=== PATIENT | male | born 1990 | race Caucasian/White ===

== ENCOUNTER 2019-09-10 04:28 | Emergency (ER) | payer SELFPAY ==
[~2019-09-10] VITALS: Ht 180.3 cm; Wt 110.0 kg
--- NOTE | 2019-09-10 04:38 | NUR ---
Pt BIB [facility] for ETOH. Pt was found at [facility] and security called [facility] for pt's increased ETOH. Pt alert and resting on gurney. Pt reported he had to pee, 2 urinals provided. Pt missed urinal and peed oneself. Pt given wipes and towels to clean himself off. Pt called this RN an "ignorant slut". 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 Per [facility] pt has no allergies, takes no meds and has hx of migraines. [facility] VS: 109/83, HR 103, 93% RA.
--- NOTE | 2019-09-10 06:30 | NUR ---
PT SLEEPING. GENITALS RE-COVERED. NAD.
[2019-09-10 07:15] VITALS: BP 108/66
--- NOTE | 2019-09-10 07:15 | NUR ---
ASSUMED CARE. PT RESTING IN BED CALL LIGHT IN REACH. ETOH ODOR
--- NOTE | 2019-09-10 08:06 | NUR ---
DISCHARGE INSTRUCTIONS REVIEWED.
== END 2019-09-10 08:27 | disposition home or self-care (01) ==
LOC: ED 08:20
DX: F10.129 Alcohol abuse with intoxication, unspecified (principal); G43.909 Migraine, unspecified, not intractable, without status migrainosus; Y90.9 Presence of alcohol in blood, level not specified
CPT/HCPCS: 99283

== ENCOUNTER 2021-01-09 17:41 | Emergency (ER) | payer OTHER ==
[~2021-01-09] VITALS: Ht 175.3 cm; Wt 88.5 kg
[2021-01-09] MEDS ORDERED: DIPH,PERTUSS(ACELL),TET VAC/PF 0.5 ML IM-VACC ONE ×2 (18:30→21:14)
[2021-01-09] MEDS ORDERED: IBUPROFEN 800 MG TABLET ONE (21:14)
[2021-01-09 21:23] VITALS: BP 120/80
--- NOTE | 2021-01-09 21:26 | NUR ---
Patient given discharge instructions and they have confirmed that they understand the instructions. Patient ambulatory with steady gait.
[2021-01-09] MEDS ORDERED: IBUPROFEN 800 MG TABLET PO ONE (21:30)
== END 2021-01-09 21:28 | disposition home or self-care (01) ==
LOC: ED 21:20
DX: S00.93XA Contusion of unspecified part of head, initial encounter (principal); S09.90XA Unspecified injury of head, initial encounter; G43.909 Migraine, unspecified, not intractable, without status migrainosus; Y08.89XA Assault by other specified means, initial encounter; Y93.89 Activity, other specified; Y92.009 Unspecified place in unspecified non-institutional (private) residence as the place of occurrence of the external cause; Y99.8 Other external cause status
CPT/HCPCS: 70486; 90471; 90715; 99284

== ENCOUNTER 2021-02-02 19:51 | Emergency (ER) | payer OTHER ==
[~2021-02-02] VITALS: Ht 175.3 cm; Wt 87.7 kg
[2021-02-02 19:55] VITALS: BP 121/81
[2021-02-02 20:22] LABS: BASOPHILS % (AUTO) 1 % (0-1); EOSINOPHILS % (AUTO) 0 % (1-7); LYMPHOCYTES % (AUTO) 25 % (22-44); MEAN CORPUSCULAR HEMOGLOBIN 31.3 pg (27.5-34.5); MEAN CORPUSCULAR HGB CONC 33.6 g/dL (33.2-36.2); MONOCYTES % (AUTO) 8 % (2-9); NEUTROPHILS % (AUTO) 67 % (42-75); PLATELET COUNT 329 x10^3/uL (130-400); RED BLOOD COUNT 4.49 x10^6/uL (4.38-5.82); RED CELL DISTRIBUTION WIDTH 13.9 % (9.4-14.8)
--- NOTE | 2021-02-02 20:29 | NUR ---
occupational therapy supervisor: Pt ambulatory to room from lobby at this time.
[2021-02-02 20:34] LABS: ALANINE AMINOTRANSFERASE 46 U/L (12-78); ALBUMIN 3.9 g/dL (3.4-5.0); ANION GAP 6 mmol/L (5-15); CALCIUM 8.4 mg/dL (8.5-10.1); CHLORIDE 109 mmol/L (98-107)
[2021-02-02 20:36] LABS: ALKALINE PHOSPHATASE 76 U/L (45-117); BILIRUBIN,TOTAL 0.4 mg/dL (0.2-1.0); CREATININE 1.08 mg/dL (0.7-1.3); TOTAL PROTEIN 7.3 g/dL (6.4-8.2)
[2021-02-02] MEDS ORDERED: DOLUTEGRAVIR 50MG TAB PO ONE ×2 (22:00→23:00)
[2021-02-02] MEDS ORDERED: EMTRICITABINE/TENOFOVIR 200 MG/300 MG TABLET PO ONE ×2 (22:00→23:00)
--- NOTE | 2021-02-02 22:07 | NUR ---
PT BELONGINGS IN ROOM. PT NOT IN ROOM. UNABLE TO FIND PT IN ER AT THIS TIME
--- NOTE | 2021-02-02 22:44 | NUR ---
pt medicated per mar
[2021-02-02] MEDS ORDERED: NEOSPORIN OINT. PKT 1 PACKET ONE (22:51)
== END 2021-02-02 22:59 | disposition home or self-care (01) ==
LOC: ED 22:58
DX: S50.811A Abrasion of right forearm, initial encounter (principal); S50.312A Abrasion of left elbow, initial encounter; S50.812A Abrasion of left forearm, initial encounter; S80.212A Abrasion, left knee, initial encounter; Z21 Asymptomatic human immunodeficiency virus [HIV] infection status; T76.21XA Adult sexual abuse, suspected, initial encounter; Y93.89 Activity, other specified; Y92.89 Other specified places as the place of occurrence of the external cause; Y99.8 Other external cause status
CPT/HCPCS: 36415; 80053; 85025; 86705; 86706; 86803; 87340; 87806; 99284; G0475